=== PATIENT | female | born 1980 | race Asian ===

== ENCOUNTER 2016-11-04 21:01 | Emergency (ER) | payer OTHER ==
[~2016-11-04] VITALS: Ht 154.9 cm; Wt 59.0 kg
[2016-11-04 21:07] VITALS: BP 123/88
[2016-11-04 21:58] LABS: BILIRUBIN,URINE NEGATIVE (NEG); GLUCOSE,URINE NEGATIVE (NEG); NITRITE,URINE NEGATIVE (NEG); PROTEIN,URINE NEGATIVE (NEG-TRACE); UROBILINOGEN,URINE 0.2 mg/dL (0.2 mg/dL)
[2016-11-04 22:06] LABS: RBC,URINE 20-40 /HPF (0-2); WBC,URINE 20-40 /HPF (0-4)
[2016-11-04 22:07] LABS: BACTERIA,URINE FEW /HPF (0-FEW); SQUAMOUS EPITHELIAL CELL,UR MOD /LPF
--- NOTE | 2016-11-04 22:21 | PHYS DOC ---
Past Medical History Past Medical History: No Pertinent History Past Surgical History: No Surgical History Alcohol Use: None Drug Use: None Adult General Chief Complaint Chief Complaint: PAIN ON URINATION [facility] HPI Patient is a 36 year old female presents emergency department stating that she has having urinary frequency urgency or pain with urination. She has also stating that she is having some vaginal discharge that is dark in color. Patient does not speak [place] all information was obtained through the president of the [place] line. She denies any nausea vomiting fever or chills. Review of Systems Review of Systems Constitutional: Denies fever or chills [] Eyes: Denies change in visual acuity, redness, or eye pain [] HENT: Denies nasal congestion or sore throat [] Respiratory: Denies cough or shortness of breath [] Cardiovascular: No additional information not addressed in [facility] [] GI: Denies abdominal pain, nausea, vomiting, bloody stools or diarrhea [] : dysuria denies hematuria [] Musculoskeletal: Denies back pain or joint pain [] Integument: Denies rash or skin lesions [] Neurologic: Denies headache, focal weakness or sensory changes [] Current Medications Current Medications Current Medications Medications (Trade) Dose Ordered Sig/Nelson Start Time Stop Time Status Last Admin Dose Admin Ibuprofen (Motrin) 800 mg 1X ONCE 11/04/16 23:00 11/04/16 23:01 DC 11/04/16 22:33 800 MG Phenazopyridine HCl (Pyridium) 200 mg 1X ONCE 11/04/16 23:00 11/04/16 23:01 DC 11/04/16 22:33 200 MG Allergies Allergies Allergies Coded Allergies Type Severity Reaction Last Updated Verified No Known Drug Allergies 11/04/16 No Physical Exam Physical Exam Constitutional: Well developed, well nourished, no acute distress, non-toxic appearance. [] HENT: Normocephalic, atraumatic, bilateral external ears normal, oropharynx moist, no oral exudates, nose normal. [] Eyes: PERRLA, EOMI, conjunctiva normal, no discharge. [] Neck: Normal range of motion, no tenderness, supple, no stridor. [] Cardiovascular:Heart rate regular rhythm, no murmur [] Lungs & Thorax: Bilateral breath sounds clear to auscultation [] Abdomen: Bowel sounds normal, soft, no tenderness, no masses, no pulsatile masses. [] Skin: Warm, dry, no erythema, no rash. [] Back: No tenderness, no CVA tenderness. [] Extremities: No tenderness, no cyanosis, no clubbing, ROM intact, no edema. [] Neurologic: Alert and oriented X 3, normal motor function, normal sensory function, no focal deficits noted. [] Psychologic: Affect normal, judgement normal, mood normal. [] Current Patient Data Vital Signs Vital Signs Date Time Temp Pulse Resp B/P Pulse Ox O2 Delivery O2 Flow Rate FiO2 11/04/16 21:07 97.9 87 18 97 Room Air 97.9 Lab Values Laboratory Tests Test 11/04/16 20:45 Urine Collection Type Unknown Urine Color Yellow Urine Clarity Clear Urine pH 7.0 Urine Specific Metter <=1.005 Urine Protein Negativemg/dL (NEG-TRACE) Urine Glucose (UA) Negativemg/dL (NEG) Urine Ketones (Stick) Negativemg/dL (NEG) Urine Blood Large (NEG) Urine Nitrite Negative (NEG) Urine Bilirubin Negative (NEG) Urine Urobilinogen Dipstick 0.2mg/dL (0.2 mg/dL) Urine Leukocyte Esterase Large (NEG) Urine RBC 20-40/HPF (0-2) Urine WBC 20-40/HPF (0-4) Urine Squamous Epithelial Cells Mod/LPF Urine Amorphous Sediment Present/HPF Urine Bacteria Few/HPF (0-FEW) Microbiology 11/04/16 Wet Prep - Final, Complete EKG EKG [] Radiology/Procedures Radiology/Procedures [] Course & Med Decision Making Course & Med Decision Making Pertinent Labs and Imaging studies reviewed. (See chart for details) Pelvic exam was completed with no discharge noted in the vaginal vault. Cultures were obtained. Wet prep was negative for any abnormalities. Patient will be treated for urinary tract infection. She was provided with preprinted. Him here in the emergency department. During the pelvic exam she seemed to have been in less discomfort. Patient will be discharged home with instructions provided through the president of the [place] line. Recommended medication as prescribed drinking plenty of fluids such as water and cranberry juice. Patient will be encouraged to avoid cranberry juice cocktail carbonate beverages citrus fruits and alcohol and caffeine as these are considered irritants to the bladder. Patient agrees with discharge instructions treatment regimens and follow-up recommendations. Signs and symptoms to return back to emergency department has been provided. Dragon Disclaimer Dragon Disclaimer This electronic medical record was generated, in whole or in part, using a voice recognition dictation system. Departure Departure Impression: Primary Impression: Urinary tract infection Disposition: 01 HOME, SELF-CARE Condition: STABLE Referrals: NO PCP (PCP) Patient Instructions: Urinary Tract Infection, [id number] Additional Instructions: Activity as tolerated. Medications as prescribed. Drink plenty of fluids such as water and cranberry juice. Avoid cranberry juice cocktail, carbonated beverages, caffeine, alcohol, citrus fruits as these are considered irritants to the bladder. Follow-up the primary care physician in the next 7-10 days. Return back to emergency department for signs and symptoms of become worse. Scripts Phenazopyridine Hcl (Pyridium)100 Mg [id number] Mg PO TID #9 TAB Prov:SANDRA PA APRN 11/04/16 Nitrofurantoin Monohyd/M-Cryst (Macrobid 100 Mg Capsule)100 Mg Capsule1 Cap PO BID #14 CAP Prov:SANDRA PA APRN 11/04/16 SANDRA PA APRN Nov 04, 2016 22:21
[2016-11-04] MEDS ORDERED: IBUPROFEN 800 MG TABLET. PO ONE (23:00)
[2016-11-04] MEDS ORDERED: PHENAZOPYRIDINE 200 MG TABLET. PO ONE (23:00)
[2016-11-04] MEDS ORDERED: PHEN100T82 PO (23:44)
[2016-11-04] MEDS ORDERED: NITR100C62 PO (23:44)
--- NOTE | 2016-11-07 16:53 | VNOTE ---
CALL BACK NOTE CALL BACK Microbiology 11/04/16 Wet Prep - Final, Complete 11/04/16 Urine Culture - Final, Complete 11/04/16 Urine Culture Result 1 (JOESPH) - Final, Complete 11/04/16 Antimicrobic Susceptibility - Final, Complete Patient was treated for urinary tract infection upon discharge and was placed on Macrobid according to the culture and sensitivity patient was positive for Escherichia coli. According to the results Macrobid will take care of the infection. No change needed for patient's antibiotics SANDRA PA APRN Nov 07, 2016 16:53
== END 2016-11-05 00:10 | disposition home or self-care (01) ==
LOC: ER 21:01
DX: N39.0 Urinary tract infection, site not specified (principal)
CPT/HCPCS: 81001; 81025; 87086; 87491; 87591; 99284; Q0111; 87186